=== PATIENT | male | born 1985 | race Caucasian/White ===

== ENCOUNTER 2022-01-08 15:33 | Emergency (ER) | payer SELFPAY ==
[~2022-01-08] VITALS: Ht 180.3 cm; Wt 77.1 kg
[2022-01-08 16:28] LABS: BASOPHILS ABSOLUTE AUTO 0.09 K/mm3 (0.00-0.23); BASOPHILS PERCENT AUTO 1 % (0-2); EOSINOPHILS ABSOLUTE AUTO 0.14 K/mm3 (0.00-0.68); EOSINOPHILS PERCENT AUTO 1 % (0-6); Hemoglobin 17.1 g/dL (13.5-17.5); IMMATURE GRAN ABSOLUTE AUTO 0.05 K/mm3 (0.00-0.10); IMMATURE GRAN PERCENT AUTO 0 % (0-1); LYMPHOCYTES ABSOLUTE AUTO 1.97 K/mm3 (0.84-5.20); LYMPHOCYTES PERCENT AUTO 13 % (21-46); MONOCYTES ABSOLUTE AUTO 0.52 K/mm3 (0.16-1.47); MONOCYTES PERCENT AUTO 3 % (4-13); Mean Corpuscular HGB 32.2 pg (26.0-34.0); Mean Corpuscular HGB Conc 34.2 g/dL (31.5-36.5); Mean Corpuscular Volume 94 fL (80-100); Mean Platelet Volume 9.4 fL (9.1-12.4); NEUTROPHILS ABSOLUTE AUTO 12.93 K/mm3 (1.96-9.15); NEUTROPHILS PERCENT AUTO 82 % (41-73); Platelet Count 243 K/mm3 (150-400); RDW Coefficient Variation 12.3 % (11.7-14.2); RDW Standard Deviation 42.9 fL (35.1-46.3); Red Blood Cell Count 5.31 M/mm3 (4.30-5.90)
[2022-01-08 16:46] LABS: Albumin, Blood 4.1 g/dL (3.4-5.0); Albumin/Globulin Ratio 0.9 (0.8-1.8); Bilirubin, Total 0.4 mg/dL (0.1-1.0); Bun/Creatinine Ratio 9.4 (12.0-20.0); Calcium, Blood 9.7 mg/dL (8.5-10.1); Creatinine, Blood 1.17 mg/dL (0.60-1.20); Globulin, Blood 4.6 g/dL (2.2-4.0); Total Protein, Blood 8.7 g/dL (6.4-8.2)
[2022-01-08] MEDS ORDERED: CEPH500 PO (16:46)
[2022-01-08] MEDS ORDERED: ALEVAZOL56.7 G1 TOP (16:46)
== END 2022-01-08 17:03 | disposition home or self-care (01) ==
LOC: ER 15:33
PROVIDERS: Physician Assistant
DX: B35.3 Tinea pedis (principal)
CPT/HCPCS: 80053; 85025; A9270